=== PATIENT | male | born 1960 | race Caucasian/White ===

== ENCOUNTER → 2017-11-11 08:38 | Outpatient (CLI) | payer OTHER, SELFPAY ==
--- NOTE | 2017-11-11 | DI.MRI.S_ITS ---
PROCEDURE: MR KNEE LT WO CON INDICATIONS: LATERAL AND MEDIAL LEFT KNEE PAIN RADIATING INTO ANTERIOR LOWER LEG TECHNIQUE: Noncontrast sagittal PD fast spin echo and T2 fast spin echo with fat saturation, sagittal 3-D FLASH with fat saturation; coronal T1 spin echo and PD fast spin echo with fat saturation, and axial PD fast spin echo with fat saturation through the knee. COMPARISON: None. FINDINGS: Image quality: Excellent. Menisci: Lateral meniscus appears intact. Oblique undersurface tear involving the posterior horn and body of the medial meniscus. There is also marked truncation of the anterior horn free margin seen on image 12 series 7. There is also partial extrusion. Cruciate ligaments: The anterior cruciate ligament appears thickened with increased T2 hyperintensity involving the proximal segment, for example image 18 series 7. Posterior cruciate ligament appears intact. Medial structures: The medial collateral ligament appears intact. The posterior oblique ligament, semimembranosus tendon insertions, oblique popliteal ligament, and meniscocapsular junction appear intact. Visualized portions of the pes anserinus tendons appear normal. No abnormal bursal fluid. Lateral structures: The lateral collateral ligament, long and short heads of the biceps femoris tendon appear intact. The popliteus tendon appears normal; the popliteofibular ligament appears intact. The posterosuperior and anteroinferior popliteomeniscal fascicles appear intact. The arcuate and fabellofibular ligaments appear intact, on either side of the lateral inferior geniculate artery. Iliotibial band appears normal. Anterior structures: There is mild distal medial quadriceps tendinopathy. The patellar tendon appears grossly intact although there is adjacent soft tissue edema Patellar alignment is normal. No femoral trochlear dysplasia or ventral trochlear prominence. No edema in the infrapatellar fat pad. Bones and cartilage: No bone marrow contusions or fractures. Within the lateral compartment, and articular cartilage appears grossly preserved. Within the medial compartment, there is minimal surface fraying of the femoral and tibial cartilage Within the patellofemoral compartment, there's mild signal change in surface fraying of the cartilage overlying the lateral patellar facet. Joint space: There is physiologic knee joint fluid. No Lancaster's cyst. Normal appearing synovial plicae are incidentally noted. IMPRESSION: Complex oblique undersurface tear involving the body and posterior horn of the medial meniscus, with partial extrusion. Mild patellofemoral chondromalacia. Low-grade distal quadriceps tendinopathy. Intrasubstance signal change and thickening of the anterior cruciate ligament suggestive of early mucoid degeneration versus age-indeterminate sprain. Please correlate clinically. Dictated by: Spencer Gregory M.D. on 11/11/2017 at 10:01 Approved by: Spencer Gregory M.D. on 11/11/2017 at 10:17
== END ==
PROVIDERS: PCP Internal Medicine; Visit Provider Orthopaedic Surgery
DX: S83.232A Complex tear of medial meniscus, current injury, left knee, initial encounter (principal); M22.42 Chondromalacia patellae, left knee; M25.562 Pain in left knee
CPT/HCPCS: 73721

== ENCOUNTER 2018-01-27 07:30 | Outpatient (RCR) | payer OTHER, SELFPAY ==
--- NOTE | 2018-01-17 17:25 | PT.OIE ---
Current Diagnoses Iliotibial band syndrome, left leg (01/17/18) Other tear of medial meniscus, current injury, left knee, initial encounter (01/17/18) Provider Visit Care Team Role Provider Type Kaz Salcedo MD Primary Care Provider Physician Specialty: Internal Medicine Address: [address] [place] [address], [id number] Email: Gaurav Noriega MD Attending Provider Physician Specialty: Orthopedic Surgery Address: [address] [place] [address], [id number] Email: [email or web address] Physical Therapy Initial Evaluation PT-OP-A Visit Information Start: 01/17/18 09:03 Freq: Status: Active Protocol: Document 01/17/18 09:04 EA (Rec: 01/17/18 09:07 EA [id number]) Out-Patient Physical Therapy Visit Information Visit Information Visit Type Initial Evaluation Visit Note Patient is late to start eval Visit Start Time 07:40 Visit Stop Time 08:15 Total Visit Minutes 35 Visit Number 1 Number of JAVA WEB USER INTERFACE DEVELOPER Visits 0 Evaluation Information Evaluation Date 01/17/18 PT-OP-B Current Condition Start: 01/17/18 09:03 Freq: Status: Active Protocol: Document 01/17/18 09:04 EA (Rec: 01/17/18 09:07 EA [id number]) Current Condition History of Current Condition Onset Date April/2017 Current Complaints Left knee pain and tightness History of Current Condition Present complaint of left ant/ lat/post just below localized knee pain started last spring with no known injury or significant medical history . Pt reports pain gradually started and mostly happen after running, squatting, crossfit training and fishing. Patient reports noted frequent morning calf tightness and alleviated with increase warm and foam rolling to affected mucles. Patient denies medication intake for pain. 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 Prior Treatments and Tests MRI- 11/11/17 Self-treatment foam roller Future Testing and Treatments Planned None identified. 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 Baseline Function- Recreation/Hobbies Indep: running, cycling, fitness strength exercises with no limitation Current Functional Impairments (Reported) Functional Limitations- ADL's Indep Functional Limitations- Mobility/Gait Limited running, squatting, cycling Functional Limitations- Work/School Preparing for work in the next month Functional Limitations- Recreation/ Limited running, cycling, Hobbies fitness strengthening PT-OP-C Subjective Start: 01/17/18 09:03 Freq: Status: Active Protocol: Document 01/17/18 09:04 EA (Rec: 01/17/18 09:07 EA [id number]) OP-PT Subjective Patient Comments Patient Comments C/O left distolateral knee tight with sharp pain and diminished with increased activity. Pt states the more I do the more it feels good. Patient Reported Progress Improving Patient Questionnaires Lower Extremity Functional Scale LEFS Score 64 LEFS Impairment 1 to 19% Impaired (Score 63-79 ) OP-PT Pain Assessment Location Left Posterior Lateral Knee Scale Used Numeric (1 - 10) Description Aching Dull Frequency Intermittent Pain Aggravating Factors Exercise Stair Climbing Other Pain Alleviating Factors Foam roller, light intense exercises Patient Stated Pain Goal 0 Home Pain Medication Use Pain Medications Used No Pain Behaviors Pain Behaviors Wincing PT-OP-F Manual Assessment Start: 01/17/18 09:03 Freq: Status: Active Protocol: Document 01/17/18 17:16 EA (Rec: 01/17/18 17:28 EA [id number]) Manual Assessments Soft Tissue Assessment Soft Tissue Mobility Assessment Left gastrocsoleous, hamtrings minimal tightness Joint Mobility Assessment Joint Mobility Assessment Normal joint mob PT-OP-G Mobility & Gait Start: 01/17/18 09:03 Freq: Status: Active Protocol: Document 01/17/18 17:16 EA (Rec: 01/17/18 17:28 EA [id number]) OP Gait Assessment Gait Gait Assistance Required: Independent Gait Deviations General Gait Pattern Within Normal Limits Stair Climbing Evaluation Comments Stair Climbing Comments slight difficulty with descent (R leg leading) PT-OP-J Posture/Palpation/Skin Start: 01/17/18 09:03 Freq: Status: Active Protocol: Document 01/17/18 17:16 EA (Rec: 01/17/18 17:28 EA [id number]) Posture Evaluation Comments Posture Comments Normal knee posture A/P/L Palpation Assessment Location One Palpation Location Base origin L gastrocnemius, soleous, distal hams, popliteus, ITB Palpation Findings Soft Tissue Tightness Tenderness Palpation Details Grade 2/4 tenderness PT-OP-K Range of Motion Start: 01/17/18 09:03 Freq: Status: Active Protocol: Document 01/17/18 17:30 EA (Rec: 01/18/18 10:41 EA [id number]) Hip Goniometric Range of Motion Hip Measured in Degrees Right Hip ROM WFL Yes Left Hip ROM WFL Yes Knee Goniometric Range of Motion Knee Measured in Degrees Right Knee ROM WFL Yes Left Knee ROM WFL Yes Ankle and Foot Goniometric Range of Motion Ankle and Foot Measured in Degrees Right Dorsiflexion with Knee Flexed 15 Dorsiflexion with Knee Extended 15 Left Active Testing Position Sitting Dorsiflexion with Knee Flexed 10 Dorsiflexion with Knee Extended 12 Ankle and Foot ROM Limitations ROM Limitations Contracture PT-OP-L Special Tests Start: 01/17/18 09:03 Freq: Status: Active Protocol: Document 01/17/18 17:16 EA (Rec: 01/17/18 17:28 EA [id number]) Special Tests Knee Special Tests Cross Chondromalacia Test Results negative Frieda Test Test Results negative Lateral Pivot Shift Test Results negative Ema's Test Test Results positive Jasso's Compression Test Results Positive Apley's Compression Test Results negative PT-OP-M Strength Start: 01/17/18 09:03 Freq: Status: Active Protocol: Document 01/17/18 17:16 EA (Rec: 01/17/18 17:28 EA [id number]) Knee Strength Knee Manual Muscle Testing Left Flexion (S2) 5 Normal Extension (L3) 5 Normal Ankle/Foot Strength Ankle and Foot Manual Muscle Testing Left Dorsiflexion (L4) 5 Normal Plantarflexion (S1) 4+ Good+ Inversion 5 Normal Eversion (S1) 5 Normal PT-OP-Q Treatments Start: 01/17/18 09:03 Freq: Status: Active Protocol: Document 01/17/18 17:29 EA (Rec: 01/17/18 17:29 EA [id number]) Self-Care/Home Management Treatment Education Patient Education Home Exercise Program Joint Protection Pain Management PT-OP-T Assessment and Plan Start: 01/17/18 09:03 Freq: Status: Active Protocol: Document 01/17/18 17:16 EA (Rec: 01/17/18 17:28 EA [id number]) Physical Therapy Assessment Rehab Potential Rehabilitation Potential Excellent Evaluation Complexity Number of Personal Factors/Comorbidities 0 Number of Body Systems Impaired 1-2 Clinical Presentation at Evaluation Stable Impairments Impairments Activity Tolerance Pain ROM Soft Tissue Mobility Strength Goals Four Impairment Impaired left ankle ROM Chcf Goal (LTG) Patient will exhibit left DF in knee F/E position 0-15 to improve functional stairs gait . LTG Duration 4 wks Three Impairment Unable to perform running > 20 mins Chcf Goal (LTG) Patient perform running and other high impact activities with no increase in symptoms LTG Duration 4 wks Two Impairment No HEP inplace Geospatial Information Technologist Goal (LTG) Patient will comply to (HEP) home exercises program safely with good understanding LTG Duration 4 wks One Impairment LEFS 20% impaired Geospatial Information Technologist Goal (LTG) Patient will have LEFS of 5% impaired LTG Duration 4 wks Assessment Summary Assessment Pleasant 57 y/o male patient with a referring diagnosis of L medial meniscus tear and ITB tendinitis, presented today with left knee dysfunction due to pain and tightness of the hamtring, ITB, popliteus and gastrosoleous. Assessment reveals sensitive with Jasso's compression, Over's test, gastrocsoleous tightness and pain with overpressure, grade 2/4 tenderness over ant/lat/ post to just below fibular head. No active swelling noted , negative with Appley's, Varus test. Due to above dysfunction, patient unable to performed regular high impact physical activity such as running, cycling, and other activities requires use of normal knee and calf function. Patient is a good candidate for skilled PT to address dysfunction mentioned above. Physical Therapy Plan Frequency and Duration Frequency of Treatment 2x/Week Duration of Treatment 8 wks Plan of Care Start Date 01/17/18 Plan of Care End Date 03/14/18 Therapeutic Interventions Therapeutic Interventions Home Exercise Program Joint Mobilizations Manual Therapy Patient/Caregiver Education Self-Care/Home Management Soft Tissue Mobilization Taping Therapeutic Activities Therapeutic Exercises Modalities Cold Pack/Ice Massage Electric Stimulation Hot Packs Ultrasound Next Visit Focus/Plan Next Note Type Treatment Note
--- NOTE | 2018-01-17 17:30 | PT.OPPOC ---
Current Diagnoses Iliotibial band syndrome, left leg (01/17/18) Other tear of medial meniscus, current injury, left knee, initial encounter (01/17/18) Provider Visit Care Team Role Provider Type Kaz Salcedo MD Primary Care Provider Physician Specialty: Internal Medicine Address: [address] [place] [address], [id number] Email: Gaurav Noriega MD Attending Provider Physician Specialty: Orthopedic Surgery Address: [address] [place] [address], [id number] Email: [email or web address] Plan Of Care PT-OP-T Assessment and Plan Start: 01/17/18 09:03 Freq: Status: Active Protocol: Document 01/17/18 17:16 EA (Rec: 01/17/18 17:28 EA [id number]) Physical Therapy Assessment Rehab Potential Rehabilitation Potential Excellent Evaluation Complexity Number of Personal Factors/Comorbidities 0 Number of Body Systems Impaired 1-2 Clinical Presentation at Evaluation Stable Impairments Impairments Activity Tolerance Pain ROM Soft Tissue Mobility Strength Goals Four Impairment Impaired left ankle ROM Senior Care Goal (LTG) Patient will exhibit left DF in knee F/E position 0-15 to improve functional stairs gait . LTG Duration 4 wks Three Impairment Unable to perform running > 20 mins Food Demonstrator Goal (LTG) Patient perform running and other high impact activities with no increase in symptoms LTG Duration 4 wks Two Impairment No HEP inplace Food Demonstrator Goal (LTG) Patient will comply to (HEP) home exercises program safely with good understanding LTG Duration 4 wks One Impairment LEFS 20% impaired Food Demonstrator Goal (LTG) Patient will have LEFS of 5% impaired LTG Duration 4 wks Assessment Summary Assessment Pleasant 57 y/o male patient with a referring diagnosis of L medial meniscus tear and ITB tendinitis, presented today with left knee dysfunction due to pain and tightness of the hamstring, ITB, popliteus and gastrosoleous. Assessment reveals sensitive with Jasso's compression, Over's test, gastrocsoleus tightness and pain with overpressure, grade 2/4 tenderness over ant/lat/ post to just below fibular head. No active swelling noted , negative with Appley's, Varus test. Due to above dysfunction, patient unable to performed regular high impact physical activity such as running, cycling, and other activities requires use of normal knee and calf function. Patient is a good candidate for skilled PT to address dysfunction mentioned above. Physical Therapy Plan Frequency and Duration Frequency of Treatment 2x/Week Duration of Treatment 8 wks Plan of Care Start Date 01/17/18 Plan of Care End Date 03/14/18 Therapeutic Interventions Therapeutic Interventions Home Exercise Program Joint Mobilizations Manual Therapy Patient/Caregiver Education Self-Care/Home Management Soft Tissue Mobilization Taping Therapeutic Activities Therapeutic Exercises Modalities Cold Pack/Ice Massage Electric Stimulation Hot Packs Ultrasound Next Visit Focus/Plan Next Note Type Treatment Note Plan of Care Dates Plan of Care Start Date 01/17/18 Plan of Care End Date 03/14/18 Please Sign and Return: I have reviewed this Plan of Care and certify that the skilled therapy services above are required to meet the patient?s needs. Physician Signature Date Printed Name and Credentials Clinical Instructor Signature Printed Name and Credentials
--- NOTE | 2018-01-20 12:57 | PT.OTN ---
Current Diagnoses Iliotibial band syndrome, left leg (01/20/18) Other tear of medial meniscus, current injury, left knee, initial encounter (01/20/18) Physical Therapy Treatment Note PT-OP-A Visit Information Start: 01/17/18 09:03 Freq: Status: Active Protocol: Document 01/20/18 07:41 EA (Rec: 01/20/18 08:57 EA [id number]) Out-Patient Physical Therapy Visit Information Visit Information Visit Type Treatment Note Visit Start Time 07:30 Visit Stop Time 08:18 Total Visit Minutes 48 Visit Number 2 Number of DOVETAILER Visits 0 PT-OP-B Current Condition Start: 01/17/18 09:03 Freq: Status: Active Protocol: Document 01/17/18 09:04 EA (Rec: 01/17/18 09:07 EA [id number]) Current Condition History of Current Condition Onset Date April/2017 Current Complaints Left knee pain and tightness History of Current Condition Present complaint of left ant/ lat/post just below localized knee pain strated last spring with no known injury or significant medical history . Pt reports pain gradually started and mostly happen after running, squatting, crossfit training and fishing. Patient reports noted frequent morning calf tightness and alleviated with increase warm and foam rolling to affected mucles. Patient denies medication intake for pain. 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 Prior Treatments and Tests MRI- 11/11/17 Self-treatment foam roller Future Testing and Treatments Planned None identified. 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 Baseline Function- Recreation/Hobbies Indep: running, cycling, fitness strength exercises with no limitation Current Functional Impairments (Reported) Functional Limitations- ADL's Indep Functional Limitations- Mobility/Gait Limited running, squatting, cycling Functional Limitations- Work/School Preparing for work in the next month Functional Limitations- Recreation/ Limited running, cycling, Hobbies fitness strengthening PT-OP-C Subjective Start: 01/17/18 09:03 Freq: Status: Active Protocol: Document 01/20/18 07:41 EA (Rec: 01/20/18 08:57 EA [id number]) OP-PT Subjective Patient Comments Patient Comments Pt reports no increased in symptoms after 2 miles 20 mins run; states starts to get stiff after few minutes of standing Patient Reported Progress Improving PT-OP-F Manual Assessment Start: 01/17/18 09:03 Freq: Status: Active Protocol: Document 01/17/18 17:16 EA (Rec: 01/17/18 17:28 EA [id number]) Manual Assessments Soft Tissue Assessment Soft Tissue Mobility Assessment Left gastrocsoleous, hamtrings minimal tightness Joint Mobility Assessment Joint Mobility Assessment Normal joint mob PT-OP-G Mobility & Gait Start: 01/17/18 09:03 Freq: Status: Active Protocol: Document 01/17/18 17:16 EA (Rec: 01/17/18 17:28 EA [id number]) OP Gait Assessment Gait Gait Assistance Required: Independent Gait Deviations General Gait Pattern Within Normal Limits Stair Climbing Evaluation Comments Stair Climbing Comments slight difficulty with descent (R leg leading) PT-OP-J Posture/Palpation/Skin Start: 01/17/18 09:03 Freq: Status: Active Protocol: Document 01/17/18 17:16 EA (Rec: 01/17/18 17:28 EA [id number]) Posture Evaluation Comments Posture Comments Normal knee posture A/P/L Palpation Assessment Location One Palpation Location Base origin L gastrocnemius, soleous, distal hams, popliteus, ITB Palpation Findings Soft Tissue Tightness Tenderness Palpation Details Grade 2/4 tenderness PT-OP-K Range of Motion Start: 01/17/18 09:03 Freq: Status: Active Protocol: Document 01/17/18 17:30 EA (Rec: 01/18/18 10:41 EA [id number]) Hip Goniometric Range of Motion Hip Measured in Degrees Right Hip ROM WFL Yes Left Hip ROM WFL Yes Knee Goniometric Range of Motion Knee Measured in Degrees Right Knee ROM WFL Yes Left Knee ROM WFL Yes Ankle and Foot Goniometric Range of Motion Ankle and Foot Measured in Degrees Right Dorsiflexion with Knee Flexed 15 Dorsiflexion with Knee Extended 15 Left Active Testing Position Sitting Dorsiflexion with Knee Flexed 10 Dorsiflexion with Knee Extended 12 Ankle and Foot ROM Limitations ROM Limitations Contracture PT-OP-L Special Tests Start: 01/17/18 09:03 Freq: Status: Active Protocol: Document 01/17/18 17:16 EA (Rec: 01/17/18 17:28 EA [id number]) Special Tests Knee Special Tests Cross Chondromalacia Test Results negative Frieda Test Test Results negative Lateral Pivot Shift Test Results negative Ema's Test Test Results positive Jasso's Compression Test Results Positive Apley's Compression Test Results negative PT-OP-M Strength Start: 01/17/18 09:03 Freq: Status: Active Protocol: Document 01/17/18 17:16 EA (Rec: 01/17/18 17:28 EA [id number]) Knee Strength Knee Manual Muscle Testing Left Flexion (S2) 5 Normal Extension (L3) 5 Normal Ankle/Foot Strength Ankle and Foot Manual Muscle Testing Left Dorsiflexion (L4) 5 Normal Plantarflexion (S1) 4+ Good+ Inversion 5 Normal Eversion (S1) 5 Normal PT-OP-Q Treatments Start: 01/17/18 09:03 Freq: Status: Active Protocol: Document 01/20/18 07:41 EA (Rec: 01/20/18 08:57 EA [id number]) Cardio Equipment Elliptical Duration (Minutes) 6 Resistance 4 Other heel raises sustain for 2 minutes Gym Equipment Cable Column (Body Solid) Leg Extension Details form and execution Resistance x 12 reps x 2 Reps/Time 30-40# Therapeutic Exercises Supine Exercises 1 Supine Exercise Name hipo ER and hamstring stretch Reps/Minutes x 15SH x 2 Sidelying Exercises 1 Sidelying Exercise Name IT band Manual Therapy Treatment Soft Tissue Mobilization 1 Body Location Prox calf and IT band Mobilization Type Myofascial Release Rolling Strumming Sustained Pressure Trigger Point Release Intensity/Depth Moderate Body Position Prone Joint Mobilizations 1 Joint Prox tibfib Grade III Body Position Hooklying PT-OP-R Modalities Start: 01/17/18 09:03 Freq: Status: Active Protocol: Document 01/20/18 07:41 EA (Rec: 01/20/18 08:57 EA [id number]) Electric Stimulation Electric Stimulation Interferential Current (IFC) Body Location prox calf,L Intensity 12 Patient Position Prone Combined With Heat/Cold Hot Pack Ultrasound Therapy Treatment Left Posterior Lateral Proximal Leg Treatment Duration (minutes) 8 Patient Position Sidelying Coupling Medium Ultrasound Gel Frequency Setting (mHz) 1 Intensity Setting (w/cm2) 1.3 PT-OP-T Assessment and Plan Start: 01/17/18 09:03 Freq: Status: Active Protocol: Document 01/20/18 07:41 EA (Rec: 01/20/18 08:57 EA [id number]) Physical Therapy Assessment Assessment Summary Assessment Tolerated treatment well. Physical Therapy Plan Next Visit Focus/Plan Next Note Type Treatment Note Next Visit Plan assess prev treatment.
--- NOTE | 2018-01-24 10:58 | PT.OTN ---
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 Pt reports pain gradually started and mostly happen after running, squatting, crossfit training and fishing. Patient reports noted frequent morning calf tightness and alleviated with increase warm and foam rolling to affected mucles. Patient denies medication intake for pain. 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 Prior Treatments and Tests MRI- 11/11/17 Self-treatment foam roller Future Testing and Treatments Planned None identified. 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[employer] Baseline Function- Recreation/Hobbies Indep: running, cycling, fitness strength exercises with no limitation Current Functional Impairments (Reported) Functional Limitations- ADL's Indep Functional Limitations- Mobility/Gait Limited running, squatting, cycling Functional Limitations- Work/School Preparing for work in the next month Functional Limitations- Recreation/ Limited running, cycling, Hobbies fitness strengthening PT-OP-C Subjective Start: 01/17/18 09:03 Freq: Status: Active Protocol: Document 01/24/18 08:17 EA (Rec: 01/24/18 08:21 EA [id number]) OP-PT Subjective Patient Comments Patient Comments Pt reports symptoms are improving; states Great session last time. Patient Reported Progress Improving PT-OP-F Manual Assessment Start: 01/17/18 09:03 Freq: Status: Active Protocol: Document 01/17/18 17:16 EA (Rec: 01/17/18 17:28 EA [id number]) Manual Assessments Soft Tissue Assessment Soft Tissue Mobility Assessment Left gastrocsoleous, hamtrings minimal tightness Joint Mobility Assessment Joint Mobility Assessment Normal joint mob PT-OP-G Mobility & Gait Start: 01/17/18 09:03 Freq: Status: Active Protocol: Document 01/17/18 17:16 EA (Rec: 01/17/18 17:28 EA [id number]) OP Gait Assessment Gait Gait Assistance Required: Independent Gait Deviations General Gait Pattern Within Normal Limits Stair Climbing Evaluation Comments Stair Climbing Comments slight difficulty with descent (R leg leading) PT-OP-J Posture/Palpation/Skin Start: 01/17/18 09:03 Freq: Status: Active Protocol: Document 01/17/18 17:16 EA (Rec: 01/17/18 17:28 EA [id number]) Posture Evaluation Comments Posture Comments Normal knee posture A/P/L Palpation Assessment Location One Palpation Location Base origin L gastrocnemius, soleous, distal hams, popliteus, ITB Palpation Findings Soft Tissue Tightness Tenderness Palpation Details Grade 2/4 tenderness PT-OP-K Range of Motion Start: 01/17/18 09:03 Freq: Status: Active Protocol: Document 01/17/18 17:30 EA (Rec: 01/18/18 10:41 EA [id number]) Hip Goniometric Range of Motion Hip Measured in Degrees Right Hip ROM WFL Yes Left Hip ROM WFL Yes Knee Goniometric Range of Motion Knee Measured in Degrees Right Knee ROM WFL Yes Left Knee ROM WFL Yes Ankle and Foot Goniometric Range of Motion Ankle and Foot Measured in Degrees Right Dorsiflexion with Knee Flexed 15 Dorsiflexion with Knee Extended 15 Left Active Testing Position Sitting Dorsiflexion with Knee Flexed 10 Dorsiflexion with Knee Extended 12 Ankle and Foot ROM Limitations ROM Limitations [employer] PT-OP-L Special Tests Start: 01/17/18 09:03 Freq: Status: Active Protocol: Document 01/17/18 17:16 EA (Rec: 01/17/18 17:28 EA [id number]) Special Tests Knee Special Tests Cross Chondromalacia Test Results negative Frieda Test Test Results negative Lateral Pivot Shift Test Results negative Ema's Test Test Results positive Jasso's Compression Test Results Positive Apley's Compression Test Results negative PT-OP-M Strength Start: 01/17/18 09:03 Freq: Status: Active Protocol: Document 01/17/18 17:16 EA (Rec: 01/17/18 17:28 EA [id number]) Knee Strength Knee Manual Muscle Testing Left Flexion (S2) 5 Normal Extension (L3) 5 Normal Ankle/Foot Strength Ankle and Foot Manual Muscle Testing Left Dorsiflexion (L4) 5 Normal Plantarflexion (S1) 4+ Good+ Inversion 5 Normal Eversion (S1) 5 Normal PT-OP-Q Treatments Start: 01/17/18 09:03 Freq: Status: Active Protocol: Document 01/24/18 08:17 EA (Rec: 01/24/18 08:21 EA [id number]) Cardio Equipment Elliptical Duration (Minutes) 6 Resistance 4 Other heel raises sustain for 2 minutes Gym Equipment Cable Column (Body Solid) Leg Extension Details form and execution Resistance x 12 reps x 3 Reps/Time 30-60# Shuttle Recovery Unilateral Squats Resistance 4 cords Reps/Time x 12 reps x 2 sets Therapeutic Exercises Supine Exercises 1 Supine Exercise Name hipo ER and hamstring stretch Reps/Minutes x 15SH x 2 Sidelying Exercises 1 Sidelying Exercise Name IT band Other Exercises 1 Other Exercise Name FWD lunges with shoulder front raise Reps/Minutes x 15 steps x 4 sets Manual Therapy Treatment Soft Tissue Mobilization 1 Body Location Prox calf and IT band Mobilization Type Myofascial Release Rolling Strumming Sustained Pressure Trigger Point Release Intensity/Depth Moderate Body Position Prone Joint Mobilizations 1 Joint Prox tibfib Grade III Body Position Hooklying PT-OP-R Modalities Start: 01/17/18 09:03 Freq: Status: Active Protocol: Document 01/24/18 08:22 EA (Rec: 01/24/18 08:22 EA [id number]) Electric Stimulation Electric Stimulation Interferential Current (IFC) Body Location prox calf,L Intensity 12 Patient Position Prone Combined With Heat/Cold Hot Pack PT-OP-T Assessment and Plan Start: 01/17/18 09:03 Freq: Status: Active Protocol: Document 01/24/18 08:17 NISH (Rec: 01/24/18 08:21 NISH [id number]) Physical Therapy Assessment Assessment Summary Assessment Patient able to perform exercises with no discomfort; patient is progressing well. Physical Therapy Plan Next Visit Focus/Plan Next Note Type Treatment Note Next Visit Plan advance as tolerated.
--- NOTE | 2018-01-27 08:58 | PT.OTN ---
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 Pt reports pain gradually started and mostly happen after running, squatting, crossfit training and fishing. Patient reports noted frequent morning calf tightness and alleviated with increase warm and foam rolling to affected mucles. Patient denies medication intake for pain. 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 Prior Treatments and Tests MRI- 11/11/17 Self-treatment foam roller Future Testing and Treatments Planned None identified. 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[employer] Baseline Function- Recreation/Hobbies Indep: running, cycling, fitness strength exercises with no limitation Current Functional Impairments (Reported) Functional Limitations- ADL's Indep Functional Limitations- Mobility/Gait Limited running, squatting, cycling Functional Limitations- Work/School Preparing for work in the next month Functional Limitations- Recreation/ Limited running, cycling, Hobbies fitness strengthening PT-OP-C Subjective Start: 01/17/18 09:03 Freq: Status: Active Protocol: Document 01/27/18 08:19 EA (Rec: 01/27/18 08:28 EA [id number]) OP-PT Subjective Patient Comments Patient Comments Pt reports left knee and hamsmtring is feeling much better; states knee discomfort aggravted only after standing for a long time but not as severe as before. Patient Reported Progress Improving PT-OP-F Manual Assessment Start: 01/17/18 09:03 Freq: Status: Active Protocol: Document 01/17/18 17:16 EA (Rec: 01/17/18 17:28 EA [id number]) Manual Assessments Soft Tissue Assessment Soft Tissue Mobility Assessment Left gastrocsoleous, hamtrings minimal tightness Joint Mobility Assessment Joint Mobility Assessment Normal joint mob PT-OP-G Mobility & Gait Start: 01/17/18 09:03 Freq: Status: Active Protocol: Document 01/17/18 17:16 EA (Rec: 01/17/18 17:28 EA [id number]) OP Gait Assessment Gait Gait Assistance Required: Independent Gait Deviations General Gait Pattern Within Normal Limits Stair Climbing Evaluation Comments Stair Climbing Comments slight difficulty with descent (R leg leading) PT-OP-J Posture/Palpation/Skin Start: 01/17/18 09:03 Freq: Status: Active Protocol: Document 01/17/18 17:16 EA (Rec: 01/17/18 17:28 EA [id number]) Posture Evaluation Comments Posture Comments Normal knee posture A/P/L Palpation Assessment Location One Palpation Location Base origin L gastrocnemius, soleous, distal hams, popliteus, ITB Palpation Findings Soft Tissue Tightness Tenderness Palpation Details Grade 2/4 tenderness PT-OP-K Range of Motion Start: 01/17/18 09:03 Freq: Status: Active Protocol: Document 01/17/18 17:30 EA (Rec: 01/18/18 10:41 EA [id number]) Hip Goniometric Range of Motion Hip Measured in Degrees Right Hip ROM WFL Yes Left Hip ROM WFL Yes Knee Goniometric Range of Motion Knee Measured in Degrees Right Knee ROM WFL Yes Left Knee ROM WFL Yes Ankle and Foot Goniometric Range of Motion Ankle and Foot Measured in Degrees Right Dorsiflexion with Knee Flexed 15 Dorsiflexion with Knee Extended 15 Left Active Testing Position Sitting Dorsiflexion with Knee Flexed 10 Dorsiflexion with Knee Extended 12 Ankle and Foot ROM Limitations ROM Limitations [employer] PT-OP-L Special Tests Start: 01/17/18 09:03 Freq: Status: Active Protocol: Document 01/17/18 17:16 EA (Rec: 01/17/18 17:28 EA [id number]) Special Tests Knee Special Tests Cross Chondromalacia Test Results negative Frieda Test Test Results negative Lateral Pivot Shift Test Results negative Ema's Test Test Results positive Jasso's Compression Test Results Positive Apley's Compression Test Results negative PT-OP-M Strength Start: 01/17/18 09:03 Freq: Status: Active Protocol: Document 01/17/18 17:16 EA (Rec: 01/17/18 17:28 EA [id number]) Knee Strength Knee Manual Muscle Testing Left Flexion (S2) 5 Normal Extension (L3) 5 Normal Ankle/Foot Strength Ankle and Foot Manual Muscle Testing Left Dorsiflexion (L4) 5 Normal Plantarflexion (S1) 4+ Good+ Inversion 5 Normal Eversion (S1) 5 Normal PT-OP-Q Treatments Start: 01/17/18 09:03 Freq: Status: Active Protocol: Document 01/27/18 08:19 EA (Rec: 01/27/18 08:28 EA [id number]) Cardio Equipment Elliptical Duration (Minutes) 7 Resistance 4 Other interval; high intensity after 2 minutes x 4 Gym Equipment Cable Column (Body Solid) Leg Extension Details form and execution Resistance x 12 reps x 3 Reps/Time 30-60# Shuttle Recovery Unilateral Squats Resistance 4 cords Reps/Time x 12 reps x 2 sets Therapeutic Exercises Sidelying Exercises 1 Sidelying Exercise Name IT band stretch Reps/Minutes x30SH x 2 Standing Exercises 1 Standing Exercise Name Calf stretched: straight and bent Reps/Minutes x 30 SH x 2 reps Other Exercises 6 Other Exercise Name 12 step up and dwon Side bilateral Resistance Blue cord attached to hip Reps/Minutes x 10 reps each 5 Other Exercise Name stiff leg lift Reps/Minutes x 10 reps 4 Other Exercise Name Reverse hamstring curl Reps/Minutes x 10 reps 3 Other Exercise Name BUSO FWD/SWD step up and down Reps/Minutes x 30 sec x 3 reps 2 Other Exercise Name Single leg hop Reps/Minutes x 30 ft x 4 laps 1 Other Exercise Name FWD lunges with shoulder front raise Reps/Minutes x 15 steps x 4 sets Manual Therapy Treatment Soft Tissue Mobilization 1 Body Location Prox calf and IT band Mobilization Type Myofascial Release Rolling Strumming Sustained Pressure Trigger Point Release Intensity/Depth Deep Body Position Prone Joint Mobilizations 1 Joint Prox tibfib Grade III Body Position Hooklying PT-OP-R Modalities Start: 01/17/18 09:03 Freq: Status: Active Protocol: Document 01/27/18 08:19 EA (Rec: 01/27/18 08:28 EA [id number]) Electric Stimulation Electric Stimulation Interferential Current (IFC) Body Location prox calf,L Intensity 12 Patient Position Prone Combined With Heat/Cold Hot Pack PT-OP-T Assessment and Plan Start: 01/17/18 09:03 Freq: Status: Active Protocol: Document 01/27/18 08:19 EA (Rec: 01/27/18 08:28 EA [id number]) Physical Therapy Assessment Assessment Summary Assessment Pt able to execute exercises with good form; no noted discomfort or symptoms provocation during exercises. Overall patient is progressing well. Physical Therapy Plan Next Visit Focus/Plan Next Note Type Treatment Note Next Visit Plan advance as tolerated.
--- NOTE | 2018-03-24 14:07 | PT.OPDS ---
Current Diagnoses Iliotibial band syndrome, left leg (01/27/18) Other tear of medial meniscus, current injury, left knee, initial encounter (01/27/18) Provider Visit Care Team Role Provider Type Kaz Salcedo MD Primary Care Provider Physician Specialty: Internal Medicine Address: [address] [place] [address], [id number] Email: Gaurav Noriega MD Attending Provider Physician Specialty: Orthopedic Surgery Address: [address] [place] [address], [id number] Email: [email or web address] Visit Number Visit Number 4 Discharge Summary PT-OP-B Current Condition Start: 01/17/18 09:03 Freq: Status: Active Protocol: Document 01/17/18 09:04 EA (Rec: 01/17/18 09:07 EA [id number]) Current Condition History of Current Condition Onset Date April/2017 Current Complaints Left knee pain and tightness History of Current Condition Present complaint of left ant/ lat/post just below localized knee pain strated last spring with no known injury or significant medical history . Pt reports pain gradually started and mostly happen after running, squatting, crossfit training and fishing. Patient reports noted frequent morning calf tightness and alleviated with increase warm and foam rolling to affected mucles. Patient denies medication intake for pain. 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 Prior Treatments and Tests MRI- 11/11/17 Self-treatment foam roller Future Testing and Treatments Planned None identified. 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[employer] Baseline Function- Recreation/Hobbies Indep: running, cycling, fitness strength exercises with no limitation Current Functional Impairments (Reported) Functional Limitations- ADL's Indep Functional Limitations- Mobility/Gait Limited running, squatting, cycling Functional Limitations- Work/School Preparing for work in the next month Functional Limitations- Recreation/ Limited running, cycling, Hobbies fitness strengthening PT-OP-C Subjective Start: 01/17/18 09:03 Freq: Status: Active Protocol: Document 03/24/18 14:05 EA (Rec: 03/24/18 14:07 EA [id number]) OP-PT Subjective Patient Comments Patient Comments Pt advised PT that he would be away for fishing after last visit and would follow all recommended HEP; states he is not sure to come back soon after last visit and is ok to discharge. PT-OP-F Manual Assessment Start: 01/17/18 09:03 Freq: Status: Active Protocol: Document 01/17/18 17:16 EA (Rec: 01/17/18 17:28 EA [id number]) Manual Assessments Soft Tissue Assessment Soft Tissue Mobility Assessment Left gastrocsoleous, hamtrings minimal tightness Joint Mobility Assessment Joint Mobility Assessment Normal joint mob PT-OP-G Mobility & Gait Start: 01/17/18 09:03 Freq: Status: Active Protocol: Document 01/17/18 17:16 EA (Rec: 01/17/18 17:28 EA [id number]) OP Gait Assessment Gait Gait Assistance Required: Independent Gait Deviations General Gait Pattern Within Normal Limits Stair Climbing Evaluation Comments Stair Climbing Comments slight difficulty with descent (R leg leading) PT-OP-J Posture/Palpation/Skin Start: 01/17/18 09:03 Freq: Status: Active Protocol: Document 01/17/18 17:16 EA (Rec: 01/17/18 17:28 EA [id number]) Posture Evaluation Comments Posture Comments Normal knee posture A/P/L Palpation Assessment Location One Palpation Location Base origin L gastrocnemius, soleous, distal hams, popliteus, ITB Palpation Findings Soft Tissue Tightness Tenderness Palpation Details Grade 2/4 tenderness PT-OP-K Range of Motion Start: 01/17/18 09:03 Freq: Status: Active Protocol: Document 01/17/18 17:30 EA (Rec: 01/18/18 10:41 EA [id number]) Hip Goniometric Range of Motion Hip Measured in Degrees Right Hip ROM WFL Yes Left Hip ROM WFL Yes Knee Goniometric Range of Motion Knee Measured in Degrees Right Knee ROM WFL Yes Left Knee ROM WFL Yes Ankle and Foot Goniometric Range of Motion Ankle and Foot Measured in Degrees Right Dorsiflexion with Knee Flexed 15 Dorsiflexion with Knee Extended 15 Left Active Testing Position Sitting Dorsiflexion with Knee Flexed 10 Dorsiflexion with Knee Extended 12 Ankle and Foot ROM Limitations ROM Limitations [employer] PT-OP-L Special Tests Start: 01/17/18 09:03 Freq: Status: Active Protocol: Document 01/17/18 17:16 EA (Rec: 01/17/18 17:28 EA [id number]) Special Tests Knee Special Tests Cross Chondromalacia Test Results negative Frieda Test Test Results negative Lateral Pivot Shift Test Results negative Ema's Test Test Results positive Jasso's Compression Test Results Positive Apley's Compression Test Results negative PT-OP-M Strength Start: 01/17/18 09:03 Freq: Status: Active Protocol: Document 01/17/18 17:16 EA (Rec: 01/17/18 17:28 EA [id number]) Knee Strength Knee Manual Muscle Testing Left Flexion (S2) 5 Normal Extension (L3) 5 Normal Ankle/Foot Strength Ankle and Foot Manual Muscle Testing Left Dorsiflexion (L4) 5 Normal Plantarflexion (S1) 4+ Good+ Inversion 5 Normal Eversion (S1) 5 Normal PT-OP-T Assessment and Plan Start: 01/17/18 09:03 Freq: Status: Active Protocol: Document 03/24/18 14:05 EA (Rec: 03/24/18 14:07 EA [id number]) Physical Therapy Assessment Assessment Summary Assessment Patient is discharge after not scheduling any appointment after last visit. Physical Therapy Plan Discharge Physical Therapy Discharge Reasons No Longer Attending PT
== END 2018-04-26 11:08 ==
LOC: PHYS 07:30
PROVIDERS: PCP Internal Medicine; Visit Provider Orthopaedic Surgery
DX: M76.32 Iliotibial band syndrome, left leg (principal); S83.242A Other tear of medial meniscus, current injury, left knee, initial encounter
CPT/HCPCS: 97014; 97035; 97110; 97140; 97161; 97535; G0283

== ENCOUNTER 2018-07-17 11:52 | Emergency (ER) | payer OTHER, SELFPAY ==
[2018-07-17 12:06] VITALS: BP 129/83; PULSE 59; RESP 16; TEMP 36.9; O2SAT 99
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
[2018-07-17 13:37] VITALS: BP 119/75; PULSE 56; RESP 20; O2SAT 98
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
== END 2018-07-17 13:40 | disposition home or self-care (01) ==
PROVIDERS: Emergency Provider Emergency Medicine; PCP Internal Medicine
DX: R07.81 Pleurodynia (principal); S30.0XXA Contusion of lower back and pelvis, initial encounter; V19.3XXA Pedal cyclist (driver) (passenger) injured in unspecified nontraffic accident, initial encounter; Y93.55 Activity, bike riding
CPT/HCPCS: 71101; 99282; 99283

== ENCOUNTER → 2021-05-06 11:23 | Outpatient (CLI) | payer OTHER, SELFPAY | PROVIDERS: PCP Internal Medicine; Referring Provider Urology; Visit Provider Urology | DX: R97.20 Elevated prostate specific antigen [PSA] (principal) | CPT/HCPCS: 36415; 84153 ==

== ENCOUNTER → 2022-06-04 15:52 | Outpatient (CLI) | payer OTHER, SELFPAY ==
[2022-06-04 16:23] LABS: Hematocrit 42.8 % (41-53); Hemoglobin 14.5 g/dL (13.5-17.5); Mean Corpuscular Hemoglobin 34.2 PG (26-34); Mean Corpuscular Volume 100.6 fL (80-100); Platelet Count 265 X10^3/uL (150-400); Red Blood Cell Count 4.25 X10^6/uL (4.5-5.9); Red Cell Distribution Width 13.5 % (11.6-14.8); White Blood Cell Count 5.8 X10^3/uL (4.5-11.0)
[2022-06-04 16:53] LABS: Alanine Aminotransferase 23 IU/L (<50); Albumin 4.6 g/dL (3.5-5.0); Albumin Globulin Ratio 1.8 (1.0-2.8); Alkaline Phosphatase 56 U/L (38-126); Aspartate Aminotransferase 26 IU/L (17-59); BUN Creatinine Ratio 22.2 (6-22); Bilirubin Total 0.3 mg/dL (0.2-1.3); Blood Urea Nitrogen 24 mg/dL (9-20); Calcium 9.6 mg/dL (8.4-10.2); Carbon Dioxide 25 mmol/L (22-32); Chloride 102 mmol/L (98-107); Cholesterol 216 mg/dL (140-199); Estimated Glomerular Filt Rate > 60 mL/min (>60); Globulin 2.6 g/dL (1.7-4.1); Glucose 85 mg/dL (80-110); HDL Cholesterol 69 mg/dL (40-60); HEMOLYSIS < 15 (0-50); LDL Cholesterol Calculated 133 mg/dL (<100); Potassium 4.3 mmol/L (3.4-5.1); Sodium 135 mmol/L (137-145); Total Protein 7.2 g/dL (6.3-8.2); Triglycerides 71 mg/dL (35-150)
[2022-06-04 17:21] LABS: TSH w/ Reflex to FT4 2.14 uIU/mL (0.47-4.68)
[2022-06-04 17:23] LABS: Prostate Specific Antigen Scrn 2.03 ng/mL (0.1-4.0)
== END ==
PROVIDERS: PCP Internal Medicine; Referring Provider Internal Medicine; Visit Provider Internal Medicine
DX: Z00.00 Encounter for general adult medical examination without abnormal findings (principal); E78.2 Mixed hyperlipidemia; Z12.5 Encounter for screening for malignant neoplasm of prostate
CPT/HCPCS: 36415; 80053; 80061; 84443; 85027; G0103

== ENCOUNTER → 2022-10-22 14:29 | Outpatient (CLI) | payer OTHER, SELFPAY ==
[2022-10-22 16:27] LABS: Vitamin B12 676 pg/mL (239-931)
== END ==
PROVIDERS: PCP Internal Medicine; Referring Provider Internal Medicine; Visit Provider Internal Medicine
DX: D75.89 Other specified diseases of blood and blood-forming organs (principal)
CPT/HCPCS: 36415; 82607

== ENCOUNTER → 2022-11-25 14:41 | Outpatient (CLI) | payer OTHER, SELFPAY ==
[2022-11-25 15:31] LABS: Add Manual Diff / Slide Review NO; Basophils Absolute Auto 0 /uL (0-100); Basophils Percent Auto 0.8 % (0-2); Eosinophils Absolute Auto 100 /uL (0-450); Eosinophils Percent Auto 2.6 % (2-4); Hematocrit 40.9 % (41-53); Lymphocytes Absolute Auto 1100 /uL (1100-4500); Lymphocytes Percent Auto 19.5 % (25-40); Mean Corpuscular HGB Conc 34.3 % (30-36); Mean Corpuscular Hemoglobin 34.6 PG (26-34); Mean Corpuscular Volume 100.9 fL (80-100); Monocytes Absolute Auto 600 /uL (0-900); Monocytes Percent Auto 10.6 % (3-14); Neutrophils Absolute Auto 3700 /uL (1500-7000); Neutrophils Percent Auto 66.5 % (50-75); Platelet Count 269 X10^3/uL (150-400); Red Blood Cell Count 4.05 X10^6/uL (4.5-5.9); Red Cell Distribution Width 13.9 % (11.6-14.8); White Blood Cell Count 5.5 X10^3/uL (4.5-11.0)
== END ==
PROVIDERS: PCP Internal Medicine; Referring Provider Internal Medicine; Visit Provider Internal Medicine
DX: D75.89 Other specified diseases of blood and blood-forming organs (principal)
CPT/HCPCS: 36415; 85025

== ENCOUNTER → 2023-06-09 08:31 | Outpatient (CLI) | payer OTHER, SELFPAY ==
[2023-06-09 09:48] LABS: Add Manual Diff / Slide Review NO; Basophils Absolute Auto 0 /uL (0-100); Basophils Percent Auto 0.6 % (0-2); Eosinophils Absolute Auto 200 /uL (0-450); Eosinophils Percent Auto 3.4 % (2-4); Hematocrit 42.9 % (41-53); Hemoglobin 14.5 g/dL (13.5-17.5); Lymphocytes Absolute Auto 1100 /uL (1100-4500); Mean Corpuscular HGB Conc 33.7 % (30-36); Mean Corpuscular Hemoglobin 33.8 PG (26-34); Mean Corpuscular Volume 100.5 fL (80-100); Monocytes Absolute Auto 700 /uL (0-900); Neutrophils Absolute Auto 3400 /uL (1500-7000); Platelet Count 248 X10^3/uL (150-400); Red Blood Cell Count 4.27 X10^6/uL (4.5-5.9); White Blood Cell Count 5.4 X10^3/uL (4.5-11.0)
[2023-06-09 10:03] LABS: Aspartate Aminotransferase 28 IU/L (17-59); BUN Creatinine Ratio 21.3 (6-22); Blood Urea Nitrogen 20 mg/dL (9-20); Calcium 9.3 mg/dL (8.4-10.2); Carbon Dioxide 28 mmol/L (22-32); Chloride 105 mmol/L (98-107); Cholesterol 205 mg/dL (140-199); Estimated Glomerular Filt Rate > 60 mL/min (>60); Glucose 92 mg/dL (80-110); HDL Cholesterol 57 mg/dL (40-60); HEMOLYSIS < 15 (0-50); LDL Cholesterol Calculated 135 mg/dL (<100); Potassium 4.8 mmol/L (3.4-5.1); Sodium 137 mmol/L (137-145); Triglycerides 67 mg/dL (35-150)
[2023-06-09 10:30] LABS: Prostate Specific Antigen Scrn 2.47 ng/mL (0.1-4.0)
== END ==
PROVIDERS: PCP Internal Medicine; Referring Provider Internal Medicine; Visit Provider Internal Medicine
DX: Z12.5 Encounter for screening for malignant neoplasm of prostate (principal); E78.2 Mixed hyperlipidemia; D75.89 Other specified diseases of blood and blood-forming organs
CPT/HCPCS: 36415; 80048; 80061; 84450; 85025; G0103

== ENCOUNTER → 2023-07-07 09:25 | Outpatient (CLI) | payer OTHER, SELFPAY ==
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
== END ==
PROVIDERS: PCP Internal Medicine; Referring Provider Internal Medicine; Visit Provider Internal Medicine
DX: M75.81 Other shoulder lesions, right shoulder (principal)
CPT/HCPCS: 73030

== ENCOUNTER → 2024-06-12 10:52 | Outpatient (CLI) | payer OTHER, SELFPAY ==
[2024-06-12 12:05] LABS: Hematocrit 44.4 % (41-53); Hemoglobin 15.1 g/dL (13.5-17.5); Mean Corpuscular HGB Conc 34.1 % (30-36); Mean Corpuscular Hemoglobin 34.3 PG (26-34); Mean Corpuscular Volume 100.7 fL (80-100); Platelet Count 238 X10^3/uL (150-400); Red Blood Cell Count 4.41 X10^6/uL (4.5-5.9); Red Cell Distribution Width 13.2 % (11.6-14.8); White Blood Cell Count 5.3 X10^3/uL (4.5-11.0)
[2024-06-12 12:22] LABS: Alanine Aminotransferase 26 IU/L (<50); Albumin 4.8 g/dL (3.5-5.0); Albumin Globulin Ratio 1.9 (1.0-2.8); Alkaline Phosphatase 58 U/L (38-126); Aspartate Aminotransferase 39 IU/L (17-59); BUN Creatinine Ratio 16.5 (6-22); Blood Urea Nitrogen 20 mg/dL (9-20); Calcium 9.2 mg/dL (8.4-10.2); Carbon Dioxide 24 mmol/L (22-32); Chloride 101 mmol/L (98-107); Cholesterol 191 mg/dL (140-199); Estimated Glomerular Filt Rate > 60 mL/min (>60); Globulin 2.5 g/dL (1.7-4.1); Glucose 78 mg/dL (70-99); HDL Cholesterol 65 mg/dL (40-60); HEMOLYSIS < 15 (0-50); LDL Cholesterol Calculated 115 mg/dL (<100); Sodium 136 mmol/L (137-145); Total Protein 7.3 g/dL (6.3-8.2); Triglycerides 56 mg/dL (35-150)
[2024-06-12 12:38] LABS: Vitamin D 25 Hydroxy (D3) 47.7 ng/mL (30.0-100.0)
[2024-06-12 12:52] LABS: Prostate Specific Antigen Scrn 2.36 ng/mL (0.1-4.0)
== END ==
PROVIDERS: PCP Internal Medicine; Referring Provider Internal Medicine; Visit Provider Internal Medicine
DX: Z12.5 Encounter for screening for malignant neoplasm of prostate (principal); E78.2 Mixed hyperlipidemia; D75.89 Other specified diseases of blood and blood-forming organs; Z86.39 Personal history of other endocrine, nutritional and metabolic disease
CPT/HCPCS: 36415; 80053; 80061; 82306; 85027; G0103